=== PATIENT | female | born 1965 | race American Indian/Alaskan Native ===

== ENCOUNTER 2018-04-22 19:58 | Emergency (ER) | payer MEDICARE, OTHER ==
[2018-04-22 19:58] VITALS: BMI 35.1
[2018-04-22 20:08] VITALS: BP 108/68; PULSE 85; RESP 16; TEMP 98.3; O2SAT 100
--- NOTE | 2018-04-22 21:43 | ED PDOC ---
HPI: Psych/Substance Abuse Time Seen by Provider: 04/22/18 20:10 Chief Complaint (Nursing): Psychiatric Evaluation Chief Complaint (Provider): Psychiatric Evaluation History Per: Patient History/Exam Limitations: no limitations Onset/Duration Of Symptoms: Days Current Symptoms Are (Timing): Still Present Additional Complaint(s): 52 y/o female with a PMHx of HTN and DM presents to the ED for evaluation of depression. Patient was referred here by her PMD when she complained of depression while at an appointment. Patient denies suicidal ideation, homicidal ideation and any medical complaints. PMD: Non [facility] Provider (Dr. Mascorro) Past Medical History Reviewed: Historical Data, Nursing Documentation, Vital Signs Vital Signs: Last Vital Signs Temp 98.3 F 04/22/18 20:05 Pulse 85 04/22/18 20:05 Resp 16 04/22/18 20:05 BP 108/68 04/22/18 20:05 Pulse Ox 100 04/22/18 20:05 - Medical History PMH: Anxiety, Bipolar Disorder, Depression, HTN, Hypercholesterolemia, Malignancy (Breast), Paranoia, Post Traumatic Stress Disorder Denies: Diabetes, Hepatitis, HIV, Chronic Kidney Disease, Schizophrenia, Seizures, Sexually Transmitted Disease - Surgical History Surgical History: Appendectomy, Hernia Repair - Family History Family History: States: Unknown Family Hx - Immunization History Hx Influenza Vaccination: Yes Hx Pneumococcal Vaccination: Yes - Home Medications Home Medications: Ambulatory Orders Medication Instructions Recorded RX: Acetaminophen [Tylenol 325mg 650 mg PO Q4H PRN tab 04/03/18 tab] ALPRAZolam [Xanax] 0.25 mg PO DAILY 04/13/18 Aripiprazole [Abilify] 30 mg PO HS 04/13/18 Famotidine [Pepcid] 40 mg PO DAILY 04/13/18 Paroxetine HCl [Paxil] 40 mg PO DAILY 04/13/18 busPIRone [Buspar] 15 mg PO BID 04/13/18 - Allergies Allergies/Adverse Reactions: Allergies Allergy/AdvReac Type Severity Reaction Status Date / Time benztropine mesylate Allergy RASH Verified 04/22/18 20:05 [From Cogentin] fluoxetine HCl [From Prozac] Allergy RASH Verified 04/22/18 20:05 omeprazole Allergy RASH Verified 04/22/18 20:05 sertraline [From Zoloft] Allergy RASH Verified 04/22/18 20:05 Review of Systems ROS Statement: Except As Marked, All Systems Reviewed And Found Negative Psych: Positive for: Depression. Negative for: Suicidal ideation Physical Exam - Reviewed Nursing Documentation Reviewed: Yes Vital Signs Reviewed: Yes - Physical Exam Appears: Positive for: No Acute Distress Head Exam: Positive for: ATRAUMATIC, NORMOCEPHALIC Skin: Positive for: Normal Color, Warm, Dry Eye Exam: Positive for: Normal appearance, EOMI, PERRL Neck: Positive for: Normal, Painless ROM Cardiovascular/Chest: Positive for: Regular Rate, Rhythm. Negative for: Murmur Respiratory: Positive for: Normal Breath Sounds. Negative for: Respiratory Distress Gastrointestinal/Abdominal: Positive for: Normal Exam, Soft. Negative for: Tenderness Back: Positive for: Normal Inspection. Negative for: L CVA Tenderness, R CVA Tenderness, Vertebral Tenderness Extremity: Positive for: Normal ROM. Negative for: Pedal Edema, Deformity Neurologic/Psych: Positive for: Alert, Oriented. Negative for: Motor/Sensory Deficits - ECG O2 Sat by Pulse Oximetry: 100 (RA) Pulse Ox Interpretation: Normal Medical Decision Making Medical Decision Making: Time: 2013 Impression: 52 y/o female with depression Plan: -- Crisis Evaluation Pt evaluated by crisis and is stable for discharge Dx Adjustment D/O Scribe Attestation: Documented by Deven Lowry, acting as a scribe Ce Hatch MD. Provider Scribe Attestation: All medical record entries made by the Scribe were at my direction and personally dictated by me. I have reviewed the chart and agree that the record accurately reflects my personal performance of the history, physical exam, medical decision making, and the department course for this patient. I have also personally directed, reviewed, and agree with the discharge instructions and disposition. Disposition - Clinical Impression Clinical Impression: Adjustment disorder - Disposition Disposition: Routine/Home Disposition Time: 21:00 Condition: STABLE Additional Instructions: PLEASE CONTACT THE FOLLOWING WARM LINES SO TO HAVE COUNSELORS TO SPEAK TO: [facility] [phone] CONTACT [facility] [phone] Instructions: Adjustment Disorder Forms: [employer] (Sinhala)
== END 2018-04-22 21:23 | disposition home or self-care (01) ==
LOC: H.ER 19:58
DX: F43.20 Adjustment disorder, unspecified (principal)